=== PATIENT | female | born 1960 | race American Indian/Alaskan Native ===

== ENCOUNTER 2016-10-16 07:00 | Day surgery (SDC) | payer MEDICAID ==
[~2016-10-16 07:00] MED LIST: Dextrose 5%-0.45% NaCl 1,000 ML IV SCH; Midazolam 1 MG/ML 2 ML SDV ONE; fentaNYL 100 MCG/2 ML SDV ONE
[2016-10-16] MEDS ORDERED: fentaNYL 100 MCG/2 ML SDV IV ONE ×7 (07:50→16:49)
[2016-10-16] MEDS ORDERED: Midazolam 1 MG/ML 2 ML SDV IV ONE ×7 (07:51→16:49)
[2016-10-16] MEDS ORDERED: Dextrose 5%-0.45% NaCl 1,000 ML IV SCH (08:00)
[2016-10-16] MEDS ORDERED: Sodium Chloride 0.9% 10 ML Syringe FLUSH PRN (08:00)
--- NOTE | 2016-10-16 09:56 | LETTER ---
10/16/2016 YAZAN Madden [facility] [address] [place] [address] RE: MINDA NASH KAMLESH : 1960 Dear Ms. Ventura: Ms. Minda Nash had colonoscopic examination done this morning, and she tolerated the procedure well. I herewith send a copy of the endoscopy note and photographs for your review. She has positive Hemoccult stools and colonoscopy negative for any bleeding areas. She is scheduled for esophagogastroduodenoscopy next week. Thank you, Sincerely, [facility] /[id number]
[2016-10-16 10:31] VITALS: BP 112/74
--- NOTE | 2016-10-16 10:41 | OR ---
DATE: 10/16/2016 PROCEDURE: Total colonoscopy. INSTRUMENT USED: CF-H180AL Olympus video colonoscope. PREMEDICATIONS: Fentanyl 200 mcg intravenous, Versed 4 mg intravenous. Nasal 2 L O2 cannula. The procedure was done under pulse oximetry, BP recording, and track helper. INDICATION: The patient with Hemoccult positive stools. Colonoscopic examination is done for detection of any polypoid lesions and removal, endoscopic hemostasis therapy if needed. DESCRIPTION OF PROCEDURE: Initial rectal exam was unremarkable. Rigid anoscopy was normal. The colonoscope was passed with ease. Some scattered diverticula were noted in the distal left colon. The scope was passed with ease up to the ileocecal area, photographs were taken of the normal-appearing cecum, identified by landmarks of appendiceal orifice and double-bulged ileocecal folds. No bleeding was noted from any of the visualized areas at the commencement of the examination. No stricture. No vascular ectasia. No large isolated ulcerations seen. No evidence of diffuse inflammatory bowel disease in the form of friability, contact bleeding, or ulcerations. No polyp or tumor mass identified. Probing the proximal sides of folds and flexures, using adequate distention and clearing of the stool material, withdrawal of the scope was made, cecum to rectum time over 6 minutes. No bleeding was noted from any of the visualized areas at the completion of examination. IMPRESSION: Diverticulosis. The patient tolerated the procedure well. [facility] /[id number]
== END 2016-10-16 10:13 | disposition home or self-care (01) ==
LOC: DL.ENDO 07:00
PROVIDERS: ATTEND Internal Medicine Gastroenterology
DX: K57.30 Diverticulosis of large intestine without perforation or abscess without bleeding (principal)
CPT/HCPCS: 45378; J2250; J3010; J7042

== ENCOUNTER 2016-11-13 05:26 | Day surgery (SDC) | payer MEDICAID ==
[~2016-11-13 05:26] MED LIST changes: +Sodium Chloride 0.9% 10 ML Syringe FLUSH PRN
[2016-11-13] MEDS ORDERED: Dextrose 5%-0.45% NaCl 1,000 ML IV SCH (06:00)
[2016-11-13] MEDS ORDERED: Sodium Chloride 0.9% 10 ML Syringe FLUSH PRN (06:00)
[2016-11-13] MEDS ORDERED: Midazolam 1 MG/ML 2 ML SDV ONE (06:14)
[2016-11-13] MEDS ORDERED: fentaNYL 100 MCG/2 ML SDV ONE (06:14)
[2016-11-13] MEDS ORDERED: fentaNYL 100 MCG/2 ML SDV IV ONE ×3 (06:35→14:56)
[2016-11-13] MEDS ORDERED: Midazolam 1 MG/ML 2 ML SDV IV ONE ×3 (06:36→14:56)
--- NOTE | 2016-11-13 09:17 | LETTER ---
11/13/2016 YAZAN Madden [facility] [address] [place] [address] RE: MINDA NASH : 1960 Dear Ms. Ventura: Ms. Minda Nash had esophagogastroduodenoscopy done this morning and she tolerated the procedure well. I herewith send a copy of the endoscopy note and photographs for your review. She is kept on omeprazole 20 mg p.o. daily for now. Thank you. Sincerely, [facility] /[id number]
--- NOTE | 2016-11-13 09:23 | OR ---
DATE: 11/13/2016 PROCEDURE: Esophagogastroduodenoscopy, NBI, and multiple pinch biopsies. INSTRUMENT USED: GIF-H180 Olympus video panendoscope. PREMEDICATIONS: No oral topical anesthesia used. Fentanyl 100 mcg intravenous, Versed 2 mg intravenous. The procedure was done under pulse oximetry, BP recording, and saw edge fuser circular. INDICATION: The patient with Hemoccult positive stools and colonoscopy negative for any bleeding areas on long-term aspirin. Esophagogastroduodenoscopy is performed for detection of any active erosive lesions, malignancy also under consideration, H. pylori status to be determined, endoscopic hemostasis therapy if needed. DESCRIPTION OF PROCEDURE: The scope was passed with ease. Adequate visualization of the esophagus was made from proximal to distal areas. No upper esophageal lesions identified. No distal esophageal stricture. No uphill or downhill esophageal varices. No Iris-Khan tear. No evidence of erosive esophagitis by [place] criteria. No esophageal polyp or tumor mass identified. Z-line was seen at around 40 cm distal to the oral verge, configuration consistent with grade 1 by ZAP classification. No proximal gastric varices noted. Gastric fundus examination by retroflexion showed no polypoid lesions. No gastric ulcer, malignant mass, or vascular ectasia identified. A few scattered erosions were noted in the gastric antrum. Duodenal bulb showed no ulcer. Visualized second part of the duodenum was unremarkable. Multiple pinch biopsies were taken from the gastric antrum and proximal body and sent for PyloriTek test for H. pylori and if negative then all the tissue to be sent for histopathology. No bleeding was noted from any of the visualized areas at the completion of examination. Photographs were taken of the duodenal bulb, gastric antrum, fundus, and distal esophagus. NBI views were obtained of the gastric antrum. IMPRESSION: Gastric antral erosions. The patient tolerated the procedure well. [facility] /[id number]
[2016-11-13 10:10] VITALS: BP 118/70
== END 2016-11-13 08:48 | disposition home or self-care (01) ==
LOC: DL.ENDO 05:26
PROVIDERS: ATTEND Internal Medicine Gastroenterology
DX: K25.9 Gastric ulcer, unspecified as acute or chronic, without hemorrhage or perforation (principal)
CPT/HCPCS: 43239; 87077; J2250; J3010; J7042

== ENCOUNTER → 2020-05-23 | Emergency (ER) | payer MEDICAID | LOC: DL.ED 03:10 | DX: G25.81 Restless legs syndrome (principal) | CPT/HCPCS: 99283 ==